=== PATIENT | male | born 1950 | race Caucasian/White ===

== ENCOUNTER → 2016-11-21 | Outpatient (CLI) | payer BC ==
[~2016-11-21] MED LIST: ALPH300C PO; ATOR40TA PO; BUPR300T4 PO; CARV12.52 PO; COUMADIN PO; FURO80TA77 PO; INSU100C SQ-INSULIN; INSU100I32 SQ-INSULIN; LOSA50TA2 PO; MAGNESIUM PO; METF500T4 PO; MULT-717 PO; PANT40TA5 PO; POTA20TA89 PO; SPIR25TA3 PO; TOPI150C4 PO; TRAZ100T15 PO; UBIQ100C3 PO
== END | disposition home or self-care (01) ==
LOC: STAR 13:09
PROVIDERS: ATTEND Orthopaedic Surgery
DX: Z01.818 Encounter for other preprocedural examination (principal); R94.31 Abnormal electrocardiogram [ECG] [EKG]; M75.22 Bicipital tendinitis, left shoulder; M75.122 Complete rotator cuff tear or rupture of left shoulder, not specified as traumatic; M75.42 Impingement syndrome of left shoulder
CPT/HCPCS: 93005

== ENCOUNTER 2016-11-28 08:58 | Day surgery (SDC) | payer BC ==
[2016-11-21 14:09] VITALS: BP 134/82
[~2016-11-28] VITALS: Ht 167.6 cm; Wt 100.0 kg
[~2016-11-28 08:58] MED LIST changes: +BUPIVACAINE/PF 0.25% ONE; +EPINEPHRINE 1 MG/ML, 1ML ONE
[2016-11-28] MEDS ORDERED: LACTATED RINGERS 1,000 ML IV SCH (09:28)
[2016-11-28 09:33] VITALS: BP 134/82
[2016-11-28] MEDS ORDERED: MIDAZOLAM 1 MG/ML, 2ML ONE (10:02)
[2016-11-28] MEDS ORDERED: FENTANYL PF 250 MCG/5ML ONE (10:02)
[2016-11-28 11:09] LABS: IS PT STATUS REG ER OR PRE ER? NO
[2016-11-28] MEDS ORDERED: BUPIVACAINE/PF-EPI 0.25% 1:200K INFIL ONE (11:56)
[2016-11-28] MEDS ORDERED: PROMETHAZINE 25 MG/ML, 1ML IV PRN (12:00)
[2016-11-28] MEDS ORDERED: ACETAMINOPHEN 325 MG TABLET PO PRN (12:00)
[2016-11-28] MEDS ORDERED: OXYcodone 5 MG/5 ML ORAL.SOL UDC PO PRN (12:00)
[2016-11-28] MEDS ORDERED: ALBUTEROL SULFATE 2.5 MG/3 ML NPPB PRN (12:00)
[2016-11-28] MEDS ORDERED: hydrALAzine 20 MG/ML, 1ML IV PRN (12:00)
[2016-11-28] MEDS ORDERED: MEPERIDINE/PF 25MG/0.5ML IVPush PRN (12:00)
[2016-11-28] MEDS ORDERED: METOPROLOL 1 MG/ML, 5ML IV PRN (12:00)
[2016-11-28] MEDS ORDERED: SUCCINYLCHOLINE 20 MG/ML, 10ML ONE (12:29)
[2016-11-28] MEDS ORDERED: GLYCOPYRROLATE 0.2MG/1ML, 5ML ONE (12:29)
[2016-11-28] MEDS ORDERED: CEFAZOLIN 1,000 MG ONE (12:29)
[2016-11-28] MEDS ORDERED: ONDANSETRON 2MG/ML, 2ML ONE (12:29)
[2016-11-28] MEDS ORDERED: DEXAMETHASONE 4 MG/ML, 1ML ONE (12:29)
[2016-11-28] MEDS ORDERED: NEOSTIGMINE 1 MG/ML, 10ML ONE (12:29)
[2016-11-28] MEDS ORDERED: ROCURONIUM 10 MG/ML ONE (12:29)
[2016-11-28] MEDS ORDERED: PROPOFOL 10 MG/ML, 20ML ONE (12:29)
[2016-11-28] MEDS ORDERED: FENTANYL PF 100 MCG/2ML ONE (13:24)
[2016-11-28] MEDS ORDERED: ACETAMINOPHEN 650 MG/20.3 ML UDC ONE (13:24)
[2016-11-28] MEDS ORDERED: OXYcodone 5 MG/5 ML ORAL.SOL UDC ONE (13:25)
[2016-11-28] MEDS: FENTANYL PF 100 MCG/2ML IV PRN ×2 (13:30→13:35)
[2016-11-28] MEDS ORDERED: HYDROmorphone 1 MG/ML, 1ML ONE ×2 (13:45→14:06)
[2016-11-28] MEDS: HYDROmorphone 1 MG/ML, 1ML IV PRN ×4 (13:46→14:08)
[2016-11-28] MEDS ORDERED: OXYcodone/APAP 5/325MG TABLET ONE (17:49)
[2016-11-28] MEDS ORDERED: OXYcodone/APAP 5/325MG TABLET PO PRN (18:00)
== END 2016-11-28 18:00 ==
LOC: OUT 08:58
PROVIDERS: ATTEND Orthopaedic Surgery
DX: M75.112 Incomplete rotator cuff tear or rupture of left shoulder, not specified as traumatic (principal); M75.42 Impingement syndrome of left shoulder; S46.112A Strain of muscle, fascia and tendon of long head of biceps, left arm, initial encounter; I10 Essential (primary) hypertension; E11.9 Type 2 diabetes mellitus without complications; I25.10 Atherosclerotic heart disease of native coronary artery without angina pectoris; E66.9 Obesity, unspecified; Z68.35 Body mass index [BMI] 35.0-35.9, adult; X58.XXXA Exposure to other specified factors, initial encounter; Y93.89 Activity, other specified; Y92.89 Other specified places as the place of occurrence of the external cause; Y99.8 Other external cause status
CPT/HCPCS: 29826; 29827; 29999; 36415; 82962; 84484; 85610; 85730; 93005; C1713; J0171; J0330; J0690; J1100; J1170; J2250; J2405; J2704; J3010; J3490; J7120; J2710